=== PATIENT | male | born 1985 | race African-American/Black ===

== ENCOUNTER 2024-09-01 05:49 | Emergency (ER) | payer BC ==
[~2024-09-01] VITALS: Ht 175.3 cm; Wt 95.3 kg
[2024-09-01] MEDS ORDERED: KETOROLAC TROMETHAMINE INJ 30 MG/ML VIAL ONE (07:30)
[2024-09-01] MEDS ORDERED: hydrOXYzine 10 MG TABLET ONE (07:31)
[2024-09-01] MEDS ORDERED: IBUP-1955 PO (07:32)
[2024-09-01] MEDS ORDERED: ZOLP5TAB8 PO ×2 (07:32→07:35)
[2024-09-01] MEDS ORDERED: HYDR50TA61 PO (07:34)
[2024-09-01] MEDS: hydrOXYzine 10 MG TABLET PO ONE (07:46)
[2024-09-01] MEDS: KETOROLAC TROMETHAMINE INJ 30 MG/ML VIAL IM ONE (07:46)
[2024-09-01 07:47] VITALS: BP 138/76; TEMP 98.6; O2SAT 99
== END 2024-09-01 07:48 | disposition home or self-care (01) ==
LOC: ER 05:54
DX: N20.0 Calculus of kidney (principal); R10.31 Right lower quadrant pain
CPT/HCPCS: 99283; 96372; J1885; Q0177